=== PATIENT | male | born 1980 | race Caucasian/White ===

== ENCOUNTER 2016-12-26 08:46 | Day surgery (SDC) | payer SELFPAY ==
[2016-12-26] MEDS ORDERED: AMPICILLIN/SULBACTAM 1.5 GM VIAL IV ONE (08:51)
[2016-12-26] MEDS ORDERED: LIDOCAINE W/ SODIUM BICARB 0.5 ML SYR ONE (08:51)
[2016-12-26] MEDS ORDERED: Lactated Ringers 1,000 ML PRIMARY IV ONE ×2 (08:52→10:47)
[2016-12-26] MEDS ORDERED: Sodium Chloride 0.9% 100 ML IV ONE (08:52)
[2016-12-26] MEDS ORDERED: Fleet Enema 133ml RECTAL ONE (09:03)
[2016-12-26] MEDS ORDERED: BUPIVACAINE 0.5% W/ EPI - 10 ML VIAL ONE (09:28)
[2016-12-26] MEDS ORDERED: MIDAZOLAM 5 MG/1 ML ONE (09:38)
[2016-12-26] MEDS ORDERED: fentaNYL Inj 100 MCG/2 ML VIAL ONE (09:38)
[2016-12-26] MEDS ORDERED: MORPHINE SULFATE/PF 10 MG/10 ML AMPULE ONE (10:02)
[2016-12-26] MEDS ORDERED: BUPivacaine Liposome/PF (Exparel) Inj 20ml vial INFIL ONE ×3 (10:52→10:55)
[2016-12-26] MEDS ORDERED: ONDANSETRON 4 MG/2 ML VIAL IVP PRN (11:24)
[2016-12-26] MEDS ORDERED: NORMAL SALINE 10 ML SYRINGE FLUSH IVP PRN (11:24)
[2016-12-26] MEDS ORDERED: oxyCODONE/APAP 7.5/325 Tab 1 TAB TAB PO PRN (11:24)
--- NOTE | 2016-12-26 11:24 | GEN.OPNOTE ---
Operative Note Surgery Date: 12/26/16 Preoperative Diagnosis: Class III internal/external hemorrhoids complex Postoperative Diagnosis: Contrast 3 complex hemorrhoids internal and external 2 columns Procedure: Hemorrhoidectomy of internal and external hemorrhoids 2 columns Surgeon: Robert Galvez MD Anesthesia Provider: Emma Ware CRNA Anesthesia Type: Regional Estimated Blood Loss (mL): 50 Fluids: Unasyn 3 g. LR please see anesthesia notes in EMR Pathology: Hemorrhoidal complexes sent Indications: Patient has class III hemorrhoids both internal/external complex Findings: Class III hemorrhoids internal and external complex 2 columns of be excised Operative Summary: Patient is brought in operative room. Placed in dorsolithotomy position. Patient given IV sedation. Patient did have a spinal anesthetic prior to the procedure. Prepped draped sterile fashion. Timeout performed per protocols. Endoscope was then placed. Patient had complex internal/external hemorrhoids. I had manually reduce him today. We initially started on the left posterior lateral. Put a large 0 chromic suture above the hemorrhoidal complex. Made an elliptical skin incision. Dissected out with Scissors the Hemorrhoidal Tissue. Hemostasis Team Electrocautery. The Mucosa Was Closed with a Continuous Running Suture. I Then Went and Excise the Right Lateral Hemorrhoidal Complex. Sutures Placed above the Hemorrhoidal Complex. Elliptical Incision Was Then Made. Hemostasis Team Electrocautery. Wound Was Closed with Continuous Running 0 Chromic Suture. I Then Packed the Rectum with 5 Pieces of Gauze That Were Sutured Together and Coated with Vaseline. This Was Removed Prior the Patient in Discharge. Patient Tolerated Procedure Well the Were No Competitions. Counts Were Correct. Patient Transferred Recovery Room Stable Condition.
[2016-12-26 13:04] VITALS: RESP 16
[2016-12-26] MEDS ORDERED: oxyCODONE/APAP 7.5/325 Tab 1 TAB TAB PO ONE (13:24)
[2016-12-26 13:40] VITALS: TEMP 97.4
--- NOTE | 2016-12-26 14:05 | CRNA.PROCE ---
Central Neuraxis Block Placemt - - Safety Measures: Time Out Taken, Site Verified - - Type of Block: Subarachnoid (Primary anesthetic for Formal Hemorrhoidectomy) Reason for Block: Surgical Moniters Used During Block: SPO2, NIBP Sedation Used - Enter Amount Used in Comment Field: Midazolam (mg): Yes (4), Fentanyl (mcg): Yes (50) Positioning: Sitting Skin Prep Used: ChloroPrep (Twice) Draped: Yes Skin Infiltration - Enter Amount Used in Comment Field: 1% Xylocaine (mL): Yes ( 1.1) Introducer User: 23 Gauge Spinal Needle Used: 25 Corey 80 mm (1 atraumatic pass.) Local Anesthetic - Enter Amount Used in Comment Field: 0.75 % Bupivacaine with Dextrose (ml): Yes (.6 ml) Additive Used - Enter Amount Used in Comment Field: Preservative Free Morphine ( mg): Yes (.15) Bioclusive Dressing Applied: No - - Additional Details: Sat pt for 10 min post injection to limit block to "Saddle" area.
== END 2016-12-26 13:25 | disposition home or self-care (01) ==
LOC: SDSC 08:46
PROVIDERS: ATTEND Surgery
DX: K64.2 Third degree hemorrhoids (principal)
CPT/HCPCS: 46260; C9290; J2274; J2704; J3010; J0295; J2250; J7050; J7120